=== PATIENT | female | born 1940 | race Caucasian/White ===

== ENCOUNTER 2024-10-02 17:07 | Emergency (ER) | payer OTHER, SELFPAY ==
--- NOTE | ~2024-10-02 | CT_ITS ---
CLINICAL HISTORY: Fall, head trauma CT cervical spine without contrast Comparison: None Findings: Normal vertebral body alignment. Moderate multilevel spondylosis with disc space narrowing, endplate sclerosis, osteophytosis and facet arthropathy, most notably at C4-C5 and C5-C6 levels. No acute fractures or dislocations. Visualized intracranial contents are unremarkable. No cervical fluid collections or masses. No consolidation or effusion at the lung apices. IMPRESSION: No evidence of acute fracture or traumatic listhesis of the cervical spine. Moderate multilevel spondylosis, most notably at C4-C5 and C5-C6 levels. This document has been electronically signed by: Jacque Osorio MD on 10/02/2024 19:56:47
--- NOTE | ~2024-10-02 | CT_ITS ---
CLINICAL HISTORY: Fall, head trauma CT maxillofacial without contrast Comparison: None Findings: Acute comminuted nondisplaced fractures of the bilateral nasal bones with moderate surrounding soft tissue swelling. Moderate-sized right frontal /periorbital scalp hematoma. Temporomandibular joints are intact. Paranasal sinuses and mastoid air cells clear. Orbits normal. Visualized intracranial contents are within normal limits. No foreign bodies. IMPRESSION: Acute comminuted nondisplaced fractures of the bilateral nasal bones with moderate surrounding soft tissue swelling. Moderate-sized right frontal /periorbital scalp hematoma. This document has been electronically signed by: Jacque Osorio MD on 10/02/2024 19:56:37
--- NOTE | ~2024-10-02 | XR_ITS ---
CLINICAL HISTORY: fall, pain 3 view left wrist Comparison: None Findings: Acute comminuted minimally displaced fracture of the left distal radius and minimally displaced fracture of the ulnar styloid process. 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 No radiopaque foreign body. IMPRESSION: Acute comminuted minimally displaced fracture of the left distal radius and minimally displaced fracture of the ulnar styloid process. This document has been electronically signed by: Jacque Osorio MD on 10/02/2024 19:19:19
--- NOTE | ~2024-10-02 | CT_ITS ---
CLINICAL HISTORY: Fall, head trauma CT head without contrast Comparison: None Findings: No intra-axial mass, midline shift, hydrocephalus, or acute hemorrhage. No significant atrophy-like change or white matter disease. The visualized paranasal sinuses and mastoid air cells are normal. Large right frontal and periorbital soft tissue hematoma. Orbital structures are otherwise within normal limits. Acute nondisplaced comminuted fractures of the bilateral nasal bones IMPRESSION: 1. No acute intracranial findings, specifically no acute intracranial hemorrhage. 2. Large right frontal and periorbital soft tissue hematoma. Orbital structures are otherwise unremarkable. 3. Acute nondisplaced comminuted fractures of the bilateral nasal bones with moderate surrounding soft tissue swelling. This document has been electronically signed by: Jacque Osorio MD on 10/02/2024 19:56:59
[2024-10-02 17:18] VITALS: BP 130/80; BP 174/87; PULSE 80; PULSE 87; RESP 18; TEMP 36.9; O2SAT 96; O2SAT 98; BMI 24.6
--- NOTE | 2024-10-02 17:55 | ED_ITS ---
HPI - Head Injury General Chief complaint: Fall Stated complaint: fall Time Seen by Provider: 10/02/24 17:54 Source: patient and EMS Mode of arrival: EMS Limitations: no limitations History of Present Illness ED Provider: Deborah Duran NP HPI Narrative: Patient is an 83 year old female who presents emergency department via EMS for evaluation. Patient was going for a walk up and down her street alone which she typically does. Patient has a son and [id number] who are at bedside report that a neighbor saw her outside the neighbor reportedly turned her back for one moment and then looked back out the window and she was down on the ground. They deny there to have been any loss of consciousness, she is not on any anticoagulants nor does she have any known coagulation disorders. At baseline patient has been experiencing some memory issues recently, she is not able to recall events surrounding the fall, including why she may have fallen. Family feels at this time that she is mentating at her baseline. They deny any recent abnormal behaviors, weakness, or recent complaints. Patient is only physical complaint at this time is left wrist pain without any numbness tingling or cold sensation. She denies headache, dizziness, lightheadedness, neck pain, neck stiffness, chest pain, shortness of breath, nausea, vomiting, abdominal pain, pain otherwise to her extremities aside from the left wrist. She sustained multiple facial abrasions, and has hematoma forming around the superior aspect of the right orbit. Unaware of the date of last tetanus vaccination. Related Data Previous Rx's ?Medication ?Instructions ?Recorded amoxicillin 875 mg-potassium 1 tab PO BID #14 tabs 10/02/24 clavulanate 125 mg tablet Allergies Allergy/AdvReac Type Severity Reaction Status Date / Time diltiazem Allergy Hives Verified 10/02/24 17:22 fentanyl Allergy Anxiety Verified 10/02/24 17:22 morphine Allergy Hives Verified 10/02/24 17:22 nortriptyline Allergy Unknown Verified 10/02/24 17:22 transparent dressing Allergy Hives Verified 10/02/24 17:22 Review of Systems 2 Review of Systems: Yes all other systems are reviewed and are negative PMFSH Past Medical History Attestation statement: The following information was validated with the patient. Source: old records reviewed Social History Social History Smoked in Last 30 Days: No Use of substances other than those prescribed or required for medical reasons: No Advance Directives: No Advance Directives Information Provided: No Do you have a plan to hurt others: No Plan Physical Exam 2 Vital Signs: Vital Signs: Last Vital Signs Temp 98.3 F 10/02/24 18:14 Pulse 84 10/02/24 18:14 Resp 18 10/02/24 18:14 BP 179/78 H 10/02/24 18:14 Pulse Ox 97 10/02/24 18:14 O2 Del Method Room Air 10/02/24 18:14 BMI result Body Mass Index 24.6 Appearance: Alert.?Oriented to person, place and time. No acute distress.?Normal affect. Head: Normocephalic. Multiple facial abrasions over the nasal bridge as well as the chin and lips. She has a hematoma forming to the right frontal forehead/superior orbit with overlying abrasion Eyes: Pupils equal, round and reactive to light. EOMI. Conjunctiva and sclera normal? No raccoon eyes noted ENT: No septal hematoma, nares patent bilaterally. External auditory canal normal tympanic membrane pearly carrillo and intact bilaterally. No Damon sign noted. Dentition normal, no fractured teeth. No lesions or lacerations of oropharynx. Uvula midline. Moist mucous membranes. Neck: Normal inspection.? Neck supple.??No palpable tenderness, step-off, deformities. CVS: Heart sounds normal. Normal heart rate and rhythm.? Pulses normal.?? Respiratory: No respiratory distress.? Lung sounds clear to auscultation bilaterally?? Abdomen: Soft and non-tender. Normoactive bowel sounds. ?? Skin: Skin warm and dry.? Normal skin color.? Extremities: No lower extremity edema.? full range of motion to bilateral lower extremities. Full range of motion to right upper extremity. Left upper extremity with decreased AROM to the left wrist with localized swelling no significant deformity, otherwise full range of motion. 2+ radial pulses present bilaterally. Neuro: Moves all extremities spontaneously. Sensation intact bilaterally. CN II- XII intact. No focal neuro deficits. Course Reevaluation(s) Reevaluation #1: CBC is without leukocytosis anemia or thrombocytopenia. No electrolyte derangement. No ULISES. LFTs overall unremarkable. High sensitive troponin within normal range, EKG revealing sinus rhythm with first-degree AV block LA interval 220 MS, ventricular rate of 85, QTC 445, no ST-elevation. Urinalysis without evidence of infection or microscopic hematuria. XR of the left wrist reveals a distal radius and ulnar styloid fracture for which she was placed in a sugar-tong splint and remained neurovascularly intact distally after the application and provided with a sling. Reviewed outpatient follow-up with orthopedics. CT of the head and cervical spine is without acute pathology, there is evidence of bilateral nasal bone fracture no septal hematoma on evaluation, received 1st dose of Augmentin in the emergency department and have sent prescription to pharmacy remainder advised outpatient follow-up with ENT. Right periorbital ecchymosis and swelling is setting in, no signs of entrapment. She is ambulatory with a steady gait in her cane. Stable for discharge home with son at this time. Reviewed strict return precautions. All questions answered Medications Administered Discontinued Medications Generic Name Dose Route Start Last Admin Trade Name Freq PRN Reason Stop Dose Admin Acetaminophen 975 mg 10/02/24 18:18 10/02/24 18:49 Acetaminophen 325 Mg Tablet PO 10/02/24 18:19 975 mg ONCE ONE Administration Amoxicillin/Clavulanate Potassium 875 mg 10/02/24 20:24 10/02/24 20:44 Amoxicillin/Potassium Clav 875 Mg Tablet PO 10/02/24 20:25 875 mg ONCE ONE Administration Bacitracin 1 appl 10/02/24 18:18 10/02/24 18:49 Bacitracin Oint 0.9 Gm Packet TOPICAL 10/02/24 18:19 1 appl ONCE ONE Administration Protocol Diphtheria/Tetanus/Acell Pertussis 0.5 ml 10/02/24 18:18 10/02/24 18:49 Diphth,Pertus(Acell),Tet Adult 0.5 Ml Syringe IM 10/02/24 18:19 0.5 ml .ONCE ONE Administration Medical Decision Making Medical Decision Making MDM Narrative: Patient is an 83-year-old female with past medical history of hypertension, hyperlipidemia who presents emergency department via EMS for evaluation after a fall as per HPI. She has resultant injury with facial abrasions, hematoma to the right forehead/superior right orbit, and reported left wrist pain with localized swelling but no significant deformity. Extremities remain neurovascularly intact distally x4, aside from the decreased AROM to the left wrist she otherwise has full range of motion to upper and lower extremities. She has no focal neurological deficits. She is unaware of the date of her last tetanus vaccination therefore that will be updated today. Her facial abrasions will be cleansed with normal saline and topical bacitracin will be applied. Obtaining XR of the left wrist to evaluate for fracture /dislocation. CT of the head to exclude ICH, SDH, skull fracture, CT of the cervical spine to exclude fracture, traumatic subluxation, and CT of the facial bones to exclude acute maxillofacial injury. Given etiology of the fall is not exactly clear, this may have been mechanical as she was walking outdoors however given she is not able to provide a pertinent history Will obtain CBC to evaluate for leukocytosis/ anemia, CMP and lipase to evaluate for abnormal electrolytes /abnormal renal function/ abnormal hepatic/biliary function, EKG and troponin to evaluate for ischemia/ACS, and Urinalysis. Differential Diagnosis Differential Diagnoses: The differential diagnosis associated with the presentation includes (See narrative above) Admission/Observation Consideration of admission/observation: Escalation of care including admission/observation considered (See narrative above) Lab Data MDM Lab Attestation statement: I reviewed the patient's lab results. 10/02/24 18:34 10/02/24 18:34 Labs: Lab Results 10/02/24 10/02/24 Range/Units 18:25 18:34 WBC 7.1 (4.8-10.8) X10*3/uL RBC 4.30 (4.20-5.50) X10*6/uL Hgb 13.6 (12.0-16.0) g/dl Hct 39.6 (37.0-47.0) % MCV 92.1 (80.0-98.0) fL MCH 31.6 (27.0-33.0) pg MCHC 34.3 (31.0-35.0) g/dl RDW 12.4 (11.0-16.0) % Plt Count 228 (160-400) X10*3/uL MPV 10.7 (9.4-12.3) fL Immature Gran % (Auto) 0.3 (0.0-0.4) % Neut % (Auto) 68.6 (45-73) % Lymph % (Auto) 21.7 (20-40) % [place] % (Auto) 7.4 (2-11) % Eos % (Auto) 1.6 (0-4) % Baso % (Auto) 0.4 (0-2) % Lymph # (Auto) 1.5 (1.2-4.9) X10*3/uL [place] # (Auto) 0.5 (0.1-1.2) X10*3/uL Eos # (Auto) 0.1 (0.0-0.4) X10*3/uL Baso # (Auto) 0.0 (0.0-0.2) X10*3/uL Abs Immat Gran (auto) 0.02 (0.00-0.03) X10*3/uL Absolute Neuts (auto) 4.9 (2.0-8.3) x10*3/uL Absolute Nucleated RBC 0.000 (0.0-0.012) X10*3/uL Nucleated RBC % (auto) 0.0 (0.0-0.2) /100WBC Sodium 140 (135-145) mmol/L Potassium 4.0 (3.3-5.1) mmol/L Chloride 105 (96-108) mmol/L Carbon Dioxide 25 (22-29) mmol/L Anion Gap 14 (12-20) BUN 16 (9-16) mg/dL Creatinine 0.77 (0.5-1.4) mg/dL Estim Creat Clear Calc 48.4 Estimated GFR > 60 Random Glucose 108 (60-115) mg/dL Calcium 9.6 (8.4-10.2) mg/dL Magnesium 2.0 (1.6-2.6) mg/dL Total Bilirubin 0.4 (0.0-1.0) mg/dL AST 40 H (5-31) U/L ALT 18 (0-31) U/L Alkaline Phosphatase 60 (39-117) U/L Troponin I High Sens 2.7 (<3.5-17.0) ng/L Total Protein 6.6 (6.5-8.0) g/dL Albumin 4.0 (3.5-5.0) g/dL Urine Color Yellow Urine Appearance Clear Urine pH 8.0 (5.0-9.0) Ur Specific [place] 1.010 (1.005-1.025) Urine Protein Negative (Neg-Trace) mg/dL Urine Glucose (UA) Negative (Negative) mg/dL Urine Ketones Negative (Negative) mg/dL Urine Blood Negative (Negative) Urine Nitrite Negative (Negative) Ur Leukocyte Esterase Negative (Negative) Independent Interpretation I performed an independent interpretation of an: Plain X-Ray ( left distal radius and ulnar styloid fracture) Radiology Impression Discussion of test interpretation with radiology: I have reviewed the radiologist's reading. Radiologist Impression: 3 view left wrist Comparison: None Findings: Acute comminuted minimally displaced fracture of the left distal radius and minimally displaced fracture of the ulnar styloid process. 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 No radiopaque foreign body. IMPRESSION: Acute comminuted minimally displaced fracture of the left distal radius and minimally displaced fracture of the ulnar styloid process. Independent Historian Clinical information obtained from an independent historian. History obtained from or confirmed by: EMS and Other ( son) Chronic Conditions Patient?s care impacted by: Other ( see narrative above) Procedures Orthopedic Splinting/Casting Injury #1: Side: left Upper Extremity Injury Location: wrist Upper Extremity Immobilizer: sugar tong splint Discharge Plan Discharge Clinical Impression: Distal radius fracture, left Qualifiers: Encounter type: initial encounter Fracture type: closed Fracture of ulnar styloid Qualifiers: Encounter type: initial encounter Fracture type: closed Laterality: left Fracture of nasal bone Qualifiers: Encounter type: initial encounter Patient Disposition: Home, Self-Care Instructions: Arm Fracture in Adults (DC), Nasal Fracture (ED) Additional Instructions: be sure to Rest over the next few days. Apply ice 10-15 minutes 4-6 times daily. Elevate the arm above the level of the chest. Use the sling to help with the weight of the splint. The splint must remain in place at all times it can not get wet. You will need to contact the orthopedic office first thing tomorrow morning to arrange for a follow-up appointment. you have a bilateral nasal bone fracture A prescription for antibiotics has been sent to the pharmacy due to the nasal bone fracture that you have. It is very important that you refrain from blowing your nose, picking of the nose with the fingers, coughing and sneezing if at all possible. you will need to contact the Ear Nose Throat specialist to arrange for follow-up. If you are not able to get in with the ENT associated with this hospital, you may try to contact: [facility]; [address] [place] [address], [place], [address] - [phone] Prescriptions: New amoxicillin-pot clavulanate 875-125 mg tablet 1 tab PO BID Qty: 14 0RF Referrals: [facility] [Provider Group] Yonatan Dubon [Physician] - Print Language: Nepali
--- NOTE | 2024-10-02 18:08 | ECG_ITS ---
Test Reason : FALL Blood Pressure : */* mmHG Vent. Rate : 85 BPM Atrial Rate : 85 BPM P-R Int : 220 ms QRS Dur : 72 ms QT Int : 374 ms P-R-T Axes : 60 50 66 degrees QTcB Int : 445 ms Sinus rhythm with 1st degree A-V block Minimal voltage criteria for LVH, may be normal variant ( Sokolow-Kern ) Borderline ECG No previous ECGs available Referred By: Deborah Duran Electronically Signed By: Luis Alberto Osuna
[2024-10-02 18:14] VITALS: BP 179/78; PULSE 84; RESP 18; TEMP 36.8; O2SAT 97
[2024-10-02 18:39] LABS: MANUAL DIFF FLAG NO
[2024-10-02 18:40] LABS: Basophils Percent Auto 0.4 % (0-2); Eosinophils Absolute Auto 0.1 X10*3/uL (0.0-0.4); Eosinophils Percent Auto 1.6 % (0-4); Hematocrit 39.6 % (37.0-47.0); Hemoglobin 13.6 g/dl (12.0-16.0); Imm Gran Abs Auto 0.02 X10*3/uL (0.00-0.03); Imm Gran Pct Auto 0.3 % (0.0-0.4); Lymphocytes Absolute Auto 1.5 X10*3/uL (1.2-4.9); Lymphocytes Percent Auto 21.7 % (20-40); Mean Corpuscular HGB Conc 34.3 g/dl (31.0-35.0); Mean Corpuscular Hemoglobin 31.6 pg (27.0-33.0); Mean Corpuscular Volume 92.1 fL (80.0-98.0); Mean Platelet Volume 10.7 fL (9.4-12.3); Monocytes Absolute Auto 0.5 X10*3/uL (0.1-1.2); Monocytes Percent Auto 7.4 % (2-11); Neutrophils Absolute Auto 4.9 x10*3/uL (2.0-8.3); Neutrophils Percent Auto 68.6 % (45-73); Platelet Count 228 X10*3/uL (160-400); Red Cell Distribution Width 12.4 % (11.0-16.0); White Blood Count 7.1 X10*3/uL (4.8-10.8)
[2024-10-02 18:41] LABS: Appearance Urine Clear; Color Urine Yellow; Glucose Urine UA Negative (Negative); Leukocyte Esterase Urine Negative (Negative); Nitrite Urine Negative (Negative); Urine Blood Negative (Negative); Urine Ketones Negative (Negative); Urine Protein Negative (Neg-Trace)
[2024-10-02] MEDS: Diphth,Pertus(ACell),Tet Adult 0.5 ML SYRINGE IM (18:49)
[2024-10-02] MEDS: Bacitracin Oint 0.9 GM PACKET 1 APPL TOPICAL (18:49)
[2024-10-02] MEDS: Acetaminophen 325 MG TABLET 975 MG PO (18:49)
[2024-10-02 18:54] LABS: Alanine Aminotransferase 18 U/L (0-31); Alkaline Phosphatase 60 U/L (39-117); Anion Gap 14 (12-20); Aspartate Amino Transferase 40 U/L (5-31); Bilirubin Total 0.4 mg/dL (0.0-1.0); Blood Urea Nitrogen 16 mg/dL (9-16); Calcium 9.6 mg/dL (8.4-10.2); Carbon Dioxide 25 mmol/L (22-29); Chloride 105 mmol/L (96-108); Creatinine Clr Calc Pharmacy 48.4; Estimated Glomerular Filt Rate > 60; Glucose Random 108 mg/dL (60-115); Sodium 140 mmol/L (135-145); Total Protein 6.6 g/dL (6.5-8.0)
[2024-10-02 19:00] LABS: Troponin-I High Sensitivity 2.7 ng/L (<3.5-17.0)
[2024-10-02] MEDS: Amoxicillin/Potassium Clav 875 MG TABLET PO (20:44)
--- NOTE | 2024-10-02 21:25 | PC.NURSE ---
pt ambulated well to the bathroom
[2024-10-02 21:39] VITALS: PULSE 74; RESP 20; TEMP 36.4; O2SAT 97
[2024-10-02 21:40] VITALS: BP 179/78; PULSE 74; RESP 20; TEMP 36.4; O2SAT 97
== END 2024-10-02 21:42 | disposition home or self-care (01) ==
PROVIDERS: Nurse Practitioner Family; Emergency Provider Emergency Medicine
DX: S52.612A Displaced fracture of left ulna styloid process, initial encounter for closed fracture (principal); S00.81XA Abrasion of other part of head, initial encounter; S00.83XA Contusion of other part of head, initial encounter; R94.31 Abnormal electrocardiogram [ECG] [EKG]; M25.532 Pain in left wrist; R51.9 Headache, unspecified; M54.2 Cervicalgia; X58.XXXA Exposure to other specified factors, initial encounter; Y93.9 Activity, unspecified; Y92.9 Unspecified place or not applicable; Y99.8 Other external cause status; Z23 Encounter for immunization; Z79.899 Other long term (current) drug therapy
CPT/HCPCS: 29125; 36415; 70450; 70486; 72125; 73110; 80053; 81003; 83735; 84484; 85025; 90471; 90715; 93005; 99285

== ENCOUNTER → 2024-10-02 17:16 | Outpatient (BNV) | payer OTHER, SELFPAY | PROVIDERS: Emergency Provider Emergency Medicine; Visit Provider Student in an Organized Health Care Education/Training Program | DX: M47.812 Spondylosis without myelopathy or radiculopathy, cervical region (principal); S02.2XXA Fracture of nasal bones, initial encounter for closed fracture; S00.03XA Contusion of scalp, initial encounter; S52.502A Unspecified fracture of the lower end of left radius, initial encounter for closed fracture | CPT/HCPCS: 70450; 70486; 72125; 73110 ==

== ENCOUNTER → 2024-10-02 18:08 | Outpatient (BNV) | payer OTHER, SELFPAY | PROVIDERS: Emergency Provider Emergency Medicine; Visit Provider Internal Medicine Cardiovascular Disease | DX: I44.0 Atrioventricular block, first degree (principal) | CPT/HCPCS: 93010 ==